=== PATIENT | male | born 1995 | race Caucasian/White ===

== ENCOUNTER → 2016-09-21 | Outpatient (CLI) | payer BC ==
[~2016-09-21] MED LIST: HYDR-5688 PO
--- NOTE | 2016-09-21 14:49 | DIAGNOSTIC IMAGING REPORT ---
RIBS BILATERAL WITH PA CHEST CLINICAL HISTORY: RT RIB PAIN. Pain COMPARISON STUDY: 2012 FINDINGS: Negative study of the ribs bilaterally. Lungs are clear. Diaphragms are smooth. IMPRESSION: Negative study Electronically signed by: Kishor Cordova M.D. 09/21/2016 2:48 PM Dictated Date/Time: 09/21/2016 2:46 PM
== END | disposition home or self-care (01) ==
LOC: C.RAD 14:17
PROVIDERS: ATTEND Family Medicine
DX: R07.81 Pleurodynia (principal)

== ENCOUNTER → 2016-09-25 | Outpatient (CLI) | payer OTHER | END | disposition home or self-care (01) | LOC: C.LAB 04:38 | DX: Z02.83 Encounter for blood-alcohol and blood-drug test (principal) ==

== ENCOUNTER → 2016-09-26 | Outpatient (CLI) | payer BC ==
--- NOTE | 2016-09-26 10:28 | DIAGNOSTIC IMAGING REPORT ---
ULTRASOUND RIGHT UPPER QUADRANT ABDOMEN CLINICAL HISTORY: Right flank pain. COMPARISON STUDY: Abdominal CT dated 09/23/2015. TECHNIQUE: Real-time, grayscale, and color flow sonography of the right upper quadrant of the abdomen was performed. Images are reviewed in the transverse and longitudinal planes. FINDINGS: Liver: The liver is normal in size and echotexture. There is no intrahepatic biliary ductal dilatation. The main portal vein is patent. Gallbladder: The gallbladder is contracted but otherwise normal in appearance. No gallstones are identified. There is no gallbladder wall thickening or pericholecystic fluid. A sonographic Helm's sign is reportedly absent. The common bile duct measures up to 0.2 cm in diameter. Pancreas: Visualized portions of the pancreatic head and body are normal in appearance. Right kidney: Survey images of the right kidney demonstrate normal size and echotexture. There is no hydronephrosis. Ascites: None. IMPRESSION: Unremarkable sonographic assessment of the right upper quadrant. No gallstones are identified. Electronically signed by: Heath Roy M.D. 09/26/2016 10:26 AM Dictated Date/Time: 09/26/2016 10:25 AM
== END | disposition home or self-care (01) ==
LOC: C.ULTR 10:00
PROVIDERS: ATTEND Family Medicine
DX: R10.9 Unspecified abdominal pain (principal)

== ENCOUNTER 2016-09-30 13:37 | Emergency (ER) | payer BC ==
[~2016-09-30] VITALS: Ht 177.8 cm; Wt 80.2 kg
[2016-09-30 13:44] VITALS: TEMP 36.8; Ht 177.8 cm; Wt 80.2 kg
[2016-09-30 14:25] VITALS: O2SAT 99
[2016-09-30 14:32] LABS: HEMATOCRIT 45.4 % (42-52); MEAN CELL VOLUME 92.1 fL (80-100); MEAN CORPUSCULAR HEMOGLOBIN 31.2 pg (25-34); MEAN CORPUSCULAR HGB CONC 33.9 g/dl (32-36); MEAN PLATELET VOLUME 9.1 fL (7.4-10.4); PLATELET COUNT 221 K/uL (130-400); RED BLOOD COUNT 4.93 M/uL (4.7-6.1); WHITE BLOOD COUNT 8.25 K/uL (4.8-10.8)
[2016-09-30] MEDS ORDERED: KETOROLAC TROMETHAMINE 30 MG/ML VIAL IV STA (14:39)
--- NOTE | 2016-09-30 14:42 | EMERGENCY ROOM VISIT NOTE ---
History First contact with patient: 14:32 Chief Complaint: CHEST PAIN Stated Complaint: CHEST PAIN Nursing Triage Summary: Triage note: Pt reports "i have pain in the bottom on right rib cage for the past 2-3 weeks and i have been going to the dr for it." mothe reports pt has had ultrasound and x-rays and blood work. pt reports "i went back to work today and half way through the day it got worse." History of Present Illness The patient is a 21 year old male who presents to the Emergency Room with complaints of chest wall pain. The patient states he has had pain in the right anterior lower ribs for the last 2-3 weeks. He has seen his family doctor and had an ultrasound of the liver and gallbladder which was negative. He has had x -rays and blood work. The patient states that he went back to work today and the pain worsened when he was standing and sitting. The patient rates his discomfort a 5/10. The patient denies any fevers, chills, earache, sore throat , cough. He denies any abdominal pain, nausea or vomiting. Review of Systems A 10 system review of systems was completed with positives and pertinent negatives listed in the HPI. Past Medical/Surgical History Medical Problems: (1) Asthma (2) Cervical vertebral fracture (3) Concussion (4) GERD (gastroesophageal reflux disease) (5) L3 vertebral fracture Family History Diabetes mellitus FH: heart disease Hypertension Social History Smoking Status: Current Every Day Smoker Marital Status: single Occupation Status: student Current/Historical Medications No Active Prescriptions or Reported Meds Allergies Coded Allergies: No Known Allergies (Unverified , 09/30/16) Physical Exam Vital Signs Date Time Temp Pulse Resp B/P Pulse Ox O2 Delivery O2 Flow Rate FiO2 09/30/16 16:24 91 16 142/83 98 09/30/16 14:49 87 16 132/82 98 Room Air 09/30/16 14:25 99 Room Air 09/30/16 13:44 36.8 97 18 142/92 99 Room Air Physical Exam VITALS: Vitals are noted on the nurse's note and reviewed by myself. Vital signs stable. The patient is afebrile. GENERAL: This is a 21-year-old male, in no acute distress, nondiaphoretic, well- developed well-nourished. SKIN: The skin was without rashes, erythema, edema, or bruising. There is no tenting of the skin. Capillary reflex less than 2 seconds. HEAD: Normocephalic atraumatic. EARS: External auditory canals clear, tympanic membranes pearly combs without erythema or effusion bilaterally. EYES: Pupils equal round and reactive to light and accommodation. Conjunctivae without injection, sclerae without icterus. Extraocular movements intact. NOSE: Patent, turbinates without inflammation or discharge. No sinus tenderness. MOUTH: Mucous membranes moist. Tonsils are not enlarged. Pharynx without erythema or exudate. Uvula midline. Airway patent. Tongue does not deviate. NECK: Supple without nuchal rigidity. No lymphadenopathy. No thyromegaly. Cervical spine is nontender. No JVD. HEART: Regular rate and rhythm without murmurs gallops or rubs. LUNGS: Clear to auscultation bilaterally without wheezes, rales or rhonchi. No retractions or accessory muscle use. There is tenderness to palpation to the right anterior lower ribs. ABDOMEN: Positive bowel sounds x 4. Soft, nontender, without masses or organomegaly. Helm sign negative. MUSCULOSKELETAL: No muscle atrophy, erythema, or edema noted. Full range of motion without joint tenderness in all extremities. Normal gait. Strength 5/ 5 throughout. NEURO: Patient was alert and oriented to person place and time. No focal neurological deficits. Medical Decision & Procedures ER Provider Diagnostic Interpretation: RIGHT RIBS UNILATERAL WITH PA CHEST CLINICAL HISTORY: Right rib pain COMPARISON STUDY: None FINDINGS: The erect chest reveals no pneumothorax. There is no focal pulmonary consolidation. No right-sided rib fractures are visualized. IMPRESSION: No evidence of pneumothorax. No right-sided rib fractures are visualized. Laboratory Results 09/30/16 14:20 09/30/16 14:20 Test 09/30/16 14:20 09/30/16 14:56 09/30/16 15:00 Red Blood Count 4.93 M/uL (4.7-6.1) Mean Corpuscular Volume 92.1 fL (80-100) Mean Corpuscular Hemoglobin 31.2 pg (25-34) Mean Corpuscular Hemoglobin Concent 33.9 g/dl (32-36) RDW Standard Deviation 45.1 fL (36.4-46.3) RDW Coefficient of Variation 13.3 % (11.5-14.5) Mean Platelet Volume 9.1 fL (7.4-10.4) Anion Gap 10.0 mmol/L (3-11) Est Creatinine Clear Calc Drug Dose 134.8 ml/min Estimated GFR () 140.3 Estimated GFR (Non- 121.1 BUN/Creatinine Ratio 16.5 (10-20) Calcium Level 8.6 mg/dl (8.5-10.1) Total Bilirubin 0.2 mg/dl (0.2-1) Aspartate Amino Transf (AST/SGOT) 19 U/L (15-37) Alanine Aminotransferase (ALT/SGPT) 40 U/L (12-78) Alkaline Phosphatase 56 U/L (45-117) Total Creatine Kinase 117 U/L (39-308) Creatine Kinase MB 2.0 ng/ml (0.5-3.6) Creatine Kinase MB Ratio 1.7 (0-3.0) Total Protein 6.9 gm/dl (6.4-8.2) Albumin 3.5 gm/dl (3.4-5.0) Globulin 3.4 gm/dl (2.5-4.0) Albumin/Globulin Ratio 1.0 (0.9-2) Bedside D-Dimer 167 ng/mlFEU (0-450) Bedside Troponin I 0.000 ng/ml (0-0.045) Prothrombin Time 10.4 SECONDS (9.0-12.0) Prothromb Time International Ratio 1.0 (0.9-1.1) Activated Partial Thromboplast Time 25.3 SECONDS (21.0-31.0) Partial Thromboplastin Ratio 1.0 Medications Administered Medications (Trade) Dose Ordered Sig/Dav Route Start Time Stop Time Status Last Admin Dose Admin Ketorolac Tromethamine (Toradol Inj) 30 mg NOW STAT IV 09/30/16 14:39 09/30/16 14:40 DC 09/30/16 14:48 30 MG Procedure The patient was monitored on a cardiac specialist. They maintained a normal sinus rhythm without ectopy. ECG Indication: chest pain Rate (beats per minute): 80 Rhythm: normal sinus Findings: no acute ischemic change Change: no significant change ED Course The patient was seen and examined. Previous visits were reviewed. The patient does not have a fever or leukocytosis. He does not have any significant electrolyte abnormality. Troponin is not elevated. D-dimer is not elevated. Rib x-ray does not reveal any obvious abnormality. The patient has pain to the right anterior lower ribs. It is reproducible with palpation and movement. He has already been evaluated for cholecystitis and has had normal ultrasounds. The above workup does not reveal any significant abnormality. This is likely musculoskeletal in nature. Was given 30 mg IV Toradol. He should try anti-inflammatories. He was given a note for work. He should return to the ER with any worsening symptoms. Otherwise, he should follow-up with his family doctor next week. The case was discussed with Dr. Mars who agrees with the assessment and treatment plan Medical Decision DIFFERENTIAL DIAGNOSIS: Aortic dissection, myocarditis, pericarditis, cervical disc disease, costochondritis, herpes zoster, rib fracture, pleuritis, pneumonia , pulmonary embolus, tension pneumothorax, anxiety disorder, somatoform disorder , choledocholithiasis, status, esophagitis, esophageal spasm, esophageal reflux , esophageal rupture, pancreatitis, peptic ulcer disease, cardiac ischemia, ST elevation [place], acute coronary syndrome, arrhythmia, coronary artery vasospasm. vavular heart disease, coronary artery disease, among others. Impression Primary Impression: Acute costochondritis Additional Impression: Substernal precordial chest pain Departure Information Dispostion Home / Self-Care Condition GOOD Prescriptions No Active Prescriptions or Reported Meds Referrals Johnny Acevedo M.D. (MEDICAL) (PCP) Forms HOME CARE DOCUMENTATION FORM, IMPORTANT VISIT INFORMATION, Work Instructions Lifting Limitations: no more than 10 pounds Additional Instructions: No lifiting more thatn 10 pounds for the next 7 days Patient Instructions ED Chest Pain Costochondritis, My [facility] [place] [facility] Additional Instructions Motrin 600mg every 6-8 hours for pain/inflammation Recheck with your family doctor next week Return with worsening symptoms Problem Qualifiers
[2016-09-30 14:59] LABS: BUN/CREATININE RATIO 16.5 (10-20); CALCIUM 8.6 mg/dl (8.5-10.1); CREATININE 0.88 mg/dl (0.60-1.40)
[2016-09-30 15:03] LABS: POTASSIUM 4.5 mmol/L (3.5-5.1)
[2016-09-30 15:12] LABS: CKMB/CK RATIO 1.7 (0-3.0)
--- NOTE | 2016-09-30 15:22 | DIAGNOSTIC IMAGING REPORT ---
RIGHT RIBS UNILATERAL WITH PA CHEST CLINICAL HISTORY: Right rib pain COMPARISON STUDY: None FINDINGS: The erect chest reveals no pneumothorax. There is no focal pulmonary consolidation. No right-sided rib fractures are visualized. IMPRESSION: No evidence of pneumothorax. No right-sided rib fractures are visualized. Electronically signed by: Karsten Narvaez M.D. 09/30/2016 3:21 PM Dictated Date/Time: 09/30/2016 3:19 PM
[2016-09-30 15:23] LABS: PROTHROMBIN TIME (PATIENT) 10.4 SECONDS (9.0-12.0)
[2016-09-30 16:24] VITALS: BP 142/83; PULSE 91; O2SAT 98
== END 2016-09-30 16:26 | disposition home or self-care (01) ==
LOC: C.EDB 13:40 → C.EDA 16:26
DX: M94.0 Chondrocostal junction syndrome [Tietze] (principal); R07.2 Precordial pain; J45.909 Unspecified asthma, uncomplicated; K21.9 Gastro-esophageal reflux disease without esophagitis; F17.200 Nicotine dependence, unspecified, uncomplicated; Z83.3 Family history of diabetes mellitus; Z82.49 Family history of ischemic heart disease and other diseases of the circulatory system

== ENCOUNTER 2016-11-16 14:29 | Emergency (ER) | payer BC ==
[~2016-11-16] VITALS: Ht 177.8 cm; Wt 78.2 kg
[2016-11-16 14:35] VITALS: TEMP 36.7; Ht 177.8 cm; Wt 78.2 kg
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
[2016-11-16 15:16] VITALS: O2SAT 96
[2016-11-16 15:28] LABS: URINE APPEARANCE CLOUDY (CLEAR); URINE BILIRUBIN NEG (NEG); URINE COLOR YELLOW; URINE EPITHELIAL CELL AUTO 0-5 /lpf (0-5); URINE NITRITE NEG (NEG); URINE SPECIFIC GRAVITY 1.013 (1.000-1.030); UROBILINOGEN NEG (NEG)
--- NOTE | 2016-11-16 15:30 | DIAGNOSTIC IMAGING REPORT ---
CHEST ONE VIEW PORTABLE CLINICAL HISTORY: Altered mental status. Hypertension. Right-sided numbness. COMPARISON STUDY: 09/21/2016 FINDINGS: The heart is at the upper limits of normal in size. There is no failure. There is no focal pulmonary consolidation. There are no pleural effusions.[ IMPRESSION: No active disease in the chest. Electronically signed by: Karsten Narvaez M.D. 11/16/2016 3:28 PM Dictated Date/Time: 11/16/2016 3:23 PM
[2016-11-16 15:32] LABS: MANUAL MICROSCOPIC REQUIRED? NO; REVIEW REQ? NO
[2016-11-16 15:34] LABS: INR 1.1 (0.9-1.1); PROTHROMBIN TIME (PATIENT) 11.5 SECONDS (9.0-12.0)
[2016-11-16 15:42] LABS: BLOOD UREA NITROGEN 10 mg/dl (7-18); BUN/CREATININE RATIO 9.2 (10-20); CALCIUM 8.9 mg/dl (8.5-10.1); CARBON DIOXIDE 32 mmol/L (21-32); CHLORIDE 106 mmol/L (98-107); GLUCOSE 85 mg/dl (70-99); MAGNESIUM 2.4 mg/dl (1.8-2.4); POTASSIUM 3.7 mmol/L (3.5-5.1); SODIUM 143 mmol/L (136-145)
--- NOTE | 2016-11-16 15:48 | DIAGNOSTIC IMAGING REPORT ---
CT SCAN OF THE BRAIN WITHOUT IV CONTRAST CLINICAL HISTORY: Generalized weakness. Change in mental status COMPARISON STUDY: CT of the brain dated 04/30/2016. TECHNIQUE: Unenhanced axial CT scan of the brain is performed from the vertex to the skull base. Automated dose control exposure was utilized. CT DOSE: 1040.77 mGy.cm FINDINGS: Brain parenchyma: The brain parenchyma is normal in appearance. There is no hemorrhage, mass effect, or evidence of acute territorial ischemia by CT criteria. Bowers-white matter is preserved. No extra-axial fluid collection is seen. Ventricles, sulci, cisterns: Normal in configuration. Intracranial vasculature: The visualized intracranial vasculature at the skull base is normal in appearance. Calvarium: Unremarkable. Sinuses and mastoids: The visualized paranasal sinuses are clear. The mastoid air cells are well pneumatized. Orbits: The bony orbits are grossly intact. IMPRESSION: No acute intracranial abnormality. Electronically signed by: Heath Roy M.D. 11/16/2016 3:46 PM Dictated Date/Time: 11/16/2016 3:44 PM
[2016-11-16 15:51] LABS: ALKALINE PHOSPHATASE 52 U/L (45-117); ALT/SGPT 22 U/L (12-78); AST/SGOT 12 U/L (15-37); CKMB/CK RATIO 0.7 (0-3.0); PHOSPHORUS 3.1 mg/dl (2.5-4.9); THYROID STIMULATING HORMONE 0.175 uIu/ml (0.300-4.500)
[2016-11-16 15:52] LABS: BASO % 0.2 %; BASO ABS # 0.01 K/uL (0-0.2); COMPLETE YES; HEMATOCRIT 43.5 % (42-52); IG% 0.2 %; LYMPH % 31.6 %; LYMPH ABS # 1.87 K/uL (1.2-3.4); MEAN CELL VOLUME 93.1 fL (80-100); MEAN CORPUSCULAR HEMOGLOBIN 31.5 pg (25-34); MEAN CORPUSCULAR HGB CONC 33.8 g/dl (32-36); MEAN PLATELET VOLUME 9.2 fL (7.4-10.4); MONO % 7.3 %; NEUT % 58.7 %; PLATELET COUNT 221 K/uL (130-400); RED BLOOD COUNT 4.67 M/uL (4.7-6.1); WHITE BLOOD COUNT 5.92 K/uL (4.8-10.8)
--- NOTE | 2016-11-16 15:58 | DIAGNOSTIC IMAGING REPORT ---
CERVICAL SPINE CT CT DOSE: HISTORY: Neck pain. fall TECHNIQUE: Multiaxial CT images of the cervical spine were performed and reformatted in the sagittal and coronal plane without the use of contrast. COMPARISON: Cervical spine CT 06/25/2015. FINDINGS: No fractures. No subluxation. Prevertebral soft tissues and the C1-C2 interval are intact. No pneumothorax. Slight reversal of the normal lordotic curvature of the upper cervical spine. IMPRESSION: No fractures within the cervical spine. Electronically signed by: Jose Virgen M.D. 11/16/2016 3:56 PM Dictated Date/Time: 11/16/2016 3:46 PM
[2016-11-16] MEDS ORDERED: GADAVIST IV PRN (17:45)
--- NOTE | 2016-11-16 17:48 | DIAGNOSTIC IMAGING REPORT ---
MRI OF THE BRAIN WITHOUT AND WITH IV CONTRAST CLINICAL HISTORY: requested by PCP, left sided RODRIGUEZ and rue weakness COMPARISON STUDY: 05/11/2010 TECHNIQUE: Utilizing a 1.5 Marla magnet and dedicated coil, multiplanar, multiecho imaging of the brain was performed pre and postcontrast administration. IV administration of 8.5 mL of Gadavist contrast was uneventful. FINDINGS: Normal signal characteristics of the cerebellar as well as cerebral hemispheres. 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 No new or interval finding. No significant postcontrast enhancement. No acute ischemic event. IMPRESSION: 1. No acute process. 2. 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 Electronically signed by: Kishor Cordova M.D. 11/16/2016 5:46 PM Dictated Date/Time: 11/16/2016 5:41 PM
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
[2016-11-16 19:53] VITALS: BP 140/92; PULSE 75; O2SAT 98
== END 2016-11-16 19:54 | disposition home or self-care (01) ==
LOC: C.EDB 14:34 → C.EDC 19:54
DX: R51 Headache (principal); R53.1 Weakness; R20.0 Anesthesia of skin; R06.02 Shortness of breath; R07.9 Chest pain, unspecified; K21.9 Gastro-esophageal reflux disease without esophagitis; J45.909 Unspecified asthma, uncomplicated; Z87.828 Personal history of other (healed) physical injury and trauma; R03.0 Elevated blood-pressure reading, without diagnosis of hypertension; Z82.49 Family history of ischemic heart disease and other diseases of the circulatory system; Z83.3 Family history of diabetes mellitus; F17.200 Nicotine dependence, unspecified, uncomplicated